=== PATIENT | male | born 1995 | race Caucasian/White ===

== ENCOUNTER 2017-03-15 13:19 | Emergency (ER) | payer OTHER ==
[~2017-03-15] VITALS: Ht 175.3 cm; Wt 68.0 kg
[~2017-03-15 13:19] MED LIST: AUGMENTIN 875-1 EACH PO; BACTRIM DS TAB1 EACH PO; NAPROXEN500 MG PO; NORCO 5-325 TA1 EACH PO; PENICILLIN V P500 MG PO
== END 2017-03-15 13:29 | disposition home or self-care (01) ==
LOC: ED 13:19
DX: Z00.8 Encounter for other general examination (principal)

== ENCOUNTER 2017-03-17 08:59 | Emergency (ER) | payer SELFPAY ==
[~2017-03-17] VITALS: Ht 175.3 cm; Wt 68.0 kg
== END 2017-03-17 09:15 | disposition home or self-care (01) ==
LOC: ED 08:59
DX: Z00.8 Encounter for other general examination (principal)

== ENCOUNTER 2017-12-19 15:32 | Emergency (ER) | payer OTHER ==
[~2017-12-19] VITALS: Ht 177.8 cm; Wt 74.8 kg
== END 2017-12-19 15:47 | disposition home or self-care (01) ==
LOC: ED 15:32
DX: K08.89 Other specified disorders of teeth and supporting structures (principal)

== ENCOUNTER 2020-01-30 14:29 | Emergency (ER) | payer SELFPAY ==
[~2020-01-30] VITALS: Ht 177.8 cm; Wt 79.4 kg
--- OUTSIDE RECORDS SUMMARY | 2020-01-30 14:32 | XMS ---
PreManage Notification: NICO BEARD [employer] Worker Events No recent Security Events currently on file CRITERIA MET - Group Notification CARE PROVIDERS MAXINE PRATER Counselor: Addiction (Substance Use Disorder) Current PHONE: [phone] [facility] has no Care Guidelines for this patient. Michael VISIT COUNT (12 MO.) 1 [facility] TOTAL 1 NOTE: Visits indicate total known visits. ED/UCC VISIT TRACKING (12 MO.) 01/30/2020 14:29 [facility] TYPE: Emergency COMPLAINT: - POSS OVERDOSE INPATIENT VISIT TRACKING (12 MO.) No inpatient visits to display in this time frame [email or web address]
[2020-01-30] MEDS ORDERED: SUBOXONE 8 MG-1 EAC1 SL (14:39)
== END 2020-01-30 17:32 | disposition home or self-care (01) ==
LOC: ED 14:29
DX: T40.2X1A Poisoning by other opioids, accidental (unintentional), initial encounter (principal); R11.2 Nausea with vomiting, unspecified; F17.200 Nicotine dependence, unspecified, uncomplicated
CPT/HCPCS: 96374; 99283-25; J2405